=== PATIENT | female | born 1985 | race Caucasian/White ===

== ENCOUNTER 2017-07-08 11:13 | Emergency (ER) | payer SELFPAY ==
[~2017-07-08] VITALS: Ht 175.3 cm; Wt 79.2 kg
[2017-07-08] MEDS ORDERED: NORCO 5/3251 TABLET PO (13:14)
[2017-07-08] MEDS ORDERED: PEN-VEE K,VEET500 MG PO (13:14)
[2017-07-08 13:30] VITALS: BP 114/50
== END 2017-07-08 13:31 | disposition home or self-care (01) ==
LOC: EME 11:13
DX: K04.7 Periapical abscess without sinus (principal); K02.9 Dental caries, unspecified; F17.200 Nicotine dependence, unspecified, uncomplicated; F60.3 Borderline personality disorder; K58.9 Irritable bowel syndrome, unspecified
CPT/HCPCS: 99281; 99283

== ENCOUNTER 2017-07-29 19:09 | Emergency (ER) | payer SELFPAY ==
[~2017-07-29] VITALS: Ht 175.3 cm; Wt 77.3 kg
[~2017-07-29 19:09] MED LIST: NORCO 5/3251 TABLET PO; PEN-VEE K,VEET500 MG PO
[2017-07-29 19:13] VITALS: BP 104/53
[2017-07-29] MEDS ORDERED: PERCOCET 7.51 TABLET PO (19:30)
== END 2017-07-29 20:16 | disposition home or self-care (01) ==
LOC: EME 19:09
PROC: 3E0234Z Introduction of Serum, Toxoid and Vaccine into Muscle, Percutaneous Approach (ICD-10-PCS; principal; 2017-07-29)
DX: T25.222A Burn of second degree of left foot, initial encounter (principal); X10.2XXA Contact with fats and cooking oils, initial encounter; Z23 Encounter for immunization; F17.200 Nicotine dependence, unspecified, uncomplicated
CPT/HCPCS: 99281; 99284

== ENCOUNTER 2017-08-03 14:12 | Emergency (ER) | payer SELFPAY ==
[~2017-08-03] VITALS: Ht 175.3 cm; Wt 81.3 kg
[~2017-08-03 14:12] MED LIST changes: +PERCOCET 7.51 TABLET PO
[2017-08-03 15:55] VITALS: BP 126/64
== END 2017-08-03 15:56 | disposition home or self-care (01) ==
LOC: EME 14:12
DX: T25.022D Burn of unspecified degree of left foot, subsequent encounter (principal); T31.0 Burns involving less than 10% of body surface
CPT/HCPCS: 99281; 99283

== ENCOUNTER 2017-08-07 21:27 | Emergency (ER) | payer SELFPAY ==
[~2017-08-07] VITALS: Ht 175.3 cm; Wt 80.8 kg
[2017-08-07 23:08] VITALS: BP 123/66
[2017-08-07 23:14] LABS: MONOSPOT (MONONUCLEOSIS SEROL) NEGATIVE
== END 2017-08-07 23:08 | disposition home or self-care (01) ==
LOC: EME 21:27
PROVIDERS: Nurse Practitioner Family
DX: J02.9 Acute pharyngitis, unspecified (principal); J06.9 Acute upper respiratory infection, unspecified
CPT/HCPCS: 86308; 87651 90; 99281; 99283

== ENCOUNTER 2017-09-11 16:11 | Emergency (ER) | payer SELFPAY ==
[~2017-09-11] VITALS: Ht 175.3 cm; Wt 82.0 kg
[2017-09-11 16:41] LABS: HEMATOCRIT 41.2 % (36.0-46.0); HEMOGLOBIN 14.6 G/DL (11.9-15.5); MCHC 35.4 G/DL (30.0-36.0); PLATELET COUNT 222 K/uL (156-360); RBC DIS.WIDTH-CV 11.3 % (11.8-14.6); RBC DIS.WIDTH-SD 38.7 % (39-53); RED BLOOD COUNT 4.43 M/uL (3.80-5.20); WHITE BLOOD COUNT 9.5 K/uL (4.1-10.2)
[2017-09-11 16:43] LABS: APPEARANCE SL.HAZY ((CLEAR)); BILIRUBIN NEGATIVE; BLOOD NEGATIVE; COLOR YELLOW ((YELLOW)); GLUCOSE (STRIP) NEGATIVE; KETONES NEGATIVE; LEUKOCYTES SMALL; NITRITE NEGATIVE; PROTEIN (STRIP) NEGATIVE; SPECIFIC GRAVITY 1.024 (1.000-1.030)
[2017-09-11 16:47] LABS: ALBUMIN 4.4 g/dL (3.2-4.8); CHLORIDE 107 mEq/L (99-109); POTASSIUM 4.2 mEq/L (3.7-5.4); SODIUM 139 mEq/L (136-147)
[2017-09-11 16:50] LABS: GLUCOSE 84 mg/dL (70-99); TOTAL PROTEIN 7.3 g/dL (6.4-8.3)
[2017-09-11 16:52] LABS: TOTAL BILIRUBIN 0.6 mg/dL (0.0-1.0)
[2017-09-11 16:53] LABS: ALKALINE PHOSPHATASE 75 IU/L (3-129); CREATININE 0.8 mg/dL (0.6-1.3); GFR ESTIMATE (CALCULATED) > 59 mL/min/
[2017-09-11 16:54] LABS: UREA NITROGEN (BUN) 14 mg/dL (9-23)
[2017-09-11 16:55] LABS: AST (GOT) 16 IU/L (2-34)
[2017-09-11 16:56] LABS: ALT (GPT) 14 IU/L (3-49)
[2017-09-11 17:06] LABS: BACTERIA RARE /HPF; EPITHELIAL CELLS 1+ /HPF; MUCUS TRACE /LPF; RED BLOOD CELLS NONE SEEN /HPF (0-5); UCUL ADDED? YES
[2017-09-11 17:08] LABS: QUANTITATIVE HCG < 4.0 MIU/ML
[2017-09-11] MEDS ORDERED: PYRIDIUM100 MG PO (17:18)
[2017-09-11] MEDS ORDERED: BACTRIM,SEPT1 TABLET PO (17:18)
[2017-09-11 17:34] VITALS: BP 113/58
== END 2017-09-11 17:34 | disposition home or self-care (01) ==
LOC: EME 16:11 → EXP 16:11
DX: N39.0 Urinary tract infection, site not specified (principal); F32.9 Major depressive disorder, single episode, unspecified; Z87.440 Personal history of urinary (tract) infections; F41.9 Anxiety disorder, unspecified; F60.3 Borderline personality disorder; J44.9 Chronic obstructive pulmonary disease, unspecified; K58.0 Irritable bowel syndrome with diarrhea; F17.200 Nicotine dependence, unspecified, uncomplicated
CPT/HCPCS: 80053; 81003; 84702; 85027; 87086; 99281; 99284

== ENCOUNTER 2017-09-30 22:26 | Emergency (ER) | payer SELFPAY ==
[~2017-09-30] VITALS: Ht 175.3 cm; Wt 80.6 kg
[~2017-09-30 22:26] MED LIST changes: +BACTRIM,SEPT1 TABLET PO; +PYRIDIUM100 MG PO
[2017-09-30 23:22] LABS: HEMATOCRIT 40.4 % (36.0-46.0); HEMOGLOBIN 14.2 G/DL (11.9-15.5); MCH 33.1 PG (29.0-34.0); MCHC 35.1 G/DL (30.0-36.0); MCV 94.2 FL (83-99); PLATELET COUNT 233 K/uL (156-360); RBC DIS.WIDTH-CV 11.6 % (11.8-14.6); RBC DIS.WIDTH-SD 39.2 % (39-53); RED BLOOD COUNT 4.29 M/uL (3.80-5.20); WHITE BLOOD COUNT 9.5 K/uL (4.1-10.2)
[2017-09-30 23:36] LABS: ALBUMIN 4.4 g/dL (3.2-4.8); CHLORIDE 108 mEq/L (99-109); POTASSIUM 4.3 mEq/L (3.7-5.4); SODIUM 142 mEq/L (136-147)
[2017-09-30 23:38] LABS: GLUCOSE 89 mg/dL (70-99)
[2017-09-30 23:39] LABS: TOTAL PROTEIN 7.2 g/dL (6.4-8.3)
[2017-09-30 23:40] LABS: TOTAL BILIRUBIN 0.3 mg/dL (0.0-1.0)
[2017-09-30 23:42] LABS: ALKALINE PHOSPHATASE 72 IU/L (3-129); CREATININE 0.8 mg/dL (0.6-1.3); GFR ESTIMATE (CALCULATED) > 59 mL/min/
[2017-09-30 23:43] LABS: UREA NITROGEN (BUN) 11 mg/dL (9-23)
[2017-09-30 23:44] LABS: AST (GOT) 14 IU/L (2-34)
[2017-09-30 23:45] LABS: ALT (GPT) 9 IU/L (3-49)
[2017-09-30 23:46] LABS: APPEARANCE CLEAR ((CLEAR)); BILIRUBIN NEGATIVE; BLOOD NEGATIVE; COLOR YELLOW ((YELLOW)); GLUCOSE (STRIP) NEGATIVE; KETONES NEGATIVE; LEUKOCYTES NEGATIVE; NITRITE NEGATIVE; PROTEIN (STRIP) NEGATIVE; SPECIFIC GRAVITY 1.024 (1.000-1.030); UCUL ADDED? NO; UROBILINOGEN 0.2 MG/DL (0.2-1.0)
[2017-09-30 23:52] LABS: QUANTITATIVE HCG < 4.0 MIU/ML
[2017-10-01] MEDS ORDERED: ZANTAC150 MG PO (02:48)
[2017-10-01] MEDS ORDERED: LEVSIN0.125 MG PO (02:48)
[2017-10-01] MEDS ORDERED: PROTONIX40 MG PO (02:48)
[2017-10-01 03:06] VITALS: BP 108/61
== END 2017-10-01 03:08 | disposition home or self-care (01) ==
LOC: EME 22:26
DX: K27.9 Peptic ulcer, site unspecified, unspecified as acute or chronic, without hemorrhage or perforation (principal); K58.0 Irritable bowel syndrome with diarrhea
CPT/HCPCS: 74177; 80053; 81003; 84702; 85027; 99281; 99283; J7040

== ENCOUNTER 2017-11-12 21:16 | Emergency (ER) | payer SELFPAY ==
[~2017-11-12] VITALS: Ht 175.3 cm; Wt 80.2 kg
[~2017-11-12 21:16] MED LIST changes: +LEVSIN0.125 MG PO; +PROTONIX40 MG PO; +ZANTAC150 MG PO
[2017-11-12 23:03] LABS: APPEARANCE CLEAR ((CLEAR)); BILIRUBIN SMALL; BLOOD NEGATIVE; COLOR AMBER ((YELLOW)); GLUCOSE (STRIP) NEGATIVE; KETONES 5; LEUKOCYTES NEGATIVE; NITRITE NEGATIVE; PROTEIN (STRIP) 30; SPECIFIC GRAVITY 1.029 (1.000-1.030); UCUL ADDED? NO
[2017-11-12] MEDS ORDERED: PREDNISONE20 MG PO (23:21)
[2017-11-12] MEDS ORDERED: FLEXERIL10 MG PO (23:21)
[2017-11-12] MEDS ORDERED: DIFLUCAN150 MG PO (23:21)
[2017-11-13 00:07] VITALS: BP 108/53
== END 2017-11-13 00:07 | disposition home or self-care (01) ==
LOC: EME 21:16 → RME 21:16
PROVIDERS: Nurse Practitioner Family
DX: M54.5 Low back pain (principal); M54.16 Radiculopathy, lumbar region; B37.3 Candidiasis of vulva and vagina; J44.9 Chronic obstructive pulmonary disease, unspecified; K58.9 Irritable bowel syndrome, unspecified; F32.9 Major depressive disorder, single episode, unspecified; F60.3 Borderline personality disorder; F41.9 Anxiety disorder, unspecified; F17.200 Nicotine dependence, unspecified, uncomplicated
CPT/HCPCS: 72100; 81003; 99281; 99284; J7512